=== PATIENT | female | born 1985 | race Two or more races ===

== ENCOUNTER 2017-12-16 22:41 | Emergency (ER) | payer SELFPAY ==
--- NOTE | 2017-12-17 01:52 | ER Document Report ---
ED General - General Chief Complaint: Leg Pain Stated Complaint: LEG PAIN Time Seen by Provider: 12/17/17 00:22 Notes: Patient is a 31-year-old female without chronic medical problems who presents with 24 hours of right leg pain. She describes the pain as a throbbing, aching , constant pain below the level of her knee mostly located in her calf. Pain has been worsening since onset. Nothing improves or worsens this pain. She denies a history of this intensive pain in the past although notes over the past several weeks has had occasional "shooting pain" to the affected area. She denies any swelling to the area, weakness, numbness. No history of DVT or pulmonary M was in the past. She does take an estrogen containing control pill. She has not seen her general doctor regarding today's concerns. TRAVEL OUTSIDE OF THE [place] IN LAST 30 DAYS: No - Related Data Allergies/Adverse Reactions: No Known Allergies Allergy (Unverified 05/05/13 09:11) Past Medical History - General Information source: Patient - Social History Smoking Status: Never Smoker Frequency of alcohol use: None Drug Abuse: None Lives with: Family Family History: Reviewed & Not Pertinent Past Surgical History: Reports: Hx Abdominal Surgery - Gastric Bypass 09/26/14, Hx Gastric Bypass Surgery - Immunizations Hx Diphtheria, Pertussis, Tetanus Vaccination: No Review of Systems - Review of Systems Notes: Constitutional: Negative for fever. HENT: Negative for sore throat. Eyes: Negative for visual changes. Cardiovascular: Negative for chest pain. Respiratory: Negative for shortness of breath. Gastrointestinal: Negative for abdominal pain, vomiting or diarrhea. Genitourinary: Negative for dysuria. Musculoskeletal: Positive right lower extremity pain Skin: Negative for rash. Neurological: Negative for headaches, weakness or numbness. 10 point ROS negative except as marked above and in HPI. Physical Exam - Vital signs Vitals: Temp Pulse Resp BP Pulse Ox 98.5 F 78 17 135/75 H 100 12/16/17 22:53 12/16/17 22:53 12/16/17 22:53 12/16/17 22:53 12/16/17 22:53 Interpretation: Normal Notes: PHYSICAL EXAMINATION: GENERAL: Well-appearing, well-nourished and in no acute distress. HEAD: Atraumatic, normocephalic. EYES: Pupils equal round and reactive to light, extraocular movements intact, sclera anicteric, conjunctiva are normal. ENT: nares patent, oropharynx clear without exudates. Moist mucous membranes. NECK: Normal range of motion, supple without lymphadenopathy LUNGS: Breath sounds clear to auscultation bilaterally and equal. No wheezes rales or rhonchi. HEART: Regular rate and rhythm without murmurs ABDOMEN: Soft, nontender, normoactive bowel sounds. No guarding, no rebound. No masses appreciated. EXTREMITIES: Normal range of motion, no pitting or edema. No cyanosis. Pain on palpation of the right gastrocs muscle. Bedside ultrasound with an easily compressible popliteal vein. NEUROLOGICAL: No focal neurological deficits. Moves all extremities spontaneously and on command. PSYCH: Normal mood, normal affect. SKIN: Warm, Dry, normal turgor, no rashes or lesions noted. Course - Re-evaluation Re-evalutation: 12/17/17 01:51 Patient presents with signs and symptoms most consistent with a probable gastroc strain or partial tear. Bedside ultrasound does not currently suggest an acute DVT although this is not a formal study. The patient does have a risk factor taking estrogen-containing control pill she will remain in the emergency department overnight and have a venous Doppler completed in the morning. If this is normal, I discussed with the patient that the most probable alternative would be a musculoskeletal strain and that we would subsequently discharge her home on NSAID therapy, stretching and rest to the area. She is agreeable. - Vital Signs Vital signs: Temp Pulse Resp BP Pulse Ox 98.5 F 78 17 135/75 H 100 12/16/17 22:53 12/16/17 22:53 12/16/17 22:53 12/16/17 22:53 12/16/17 22:53 - Laboratory Result Diagrams: 12/17/17 02:25 12/17/17 02:25 Discharge - Discharge Clinical Impression: Right calf pain Gastrocnemius muscle strain Qualifiers: Encounter type: initial encounter Laterality: right Qualified Code(s): S86.111A - Strain of other muscle(s) and tendon(s) of posterior muscle group at lower leg level, right leg, initial encounter Condition: Good Disposition: HOME, SELF-CARE Additional Instructions: Your ultrasound does not show an acute blood clot. You likely have a muscle strain. You should continue to take anti-inflammatories such as ibuprofen 600 mg every 6 hours. Continue to apply ice to the area is much your able. Please follow-up with your primary care physician if you do not have improving your symptoms in the next 1-2 weeks. Please return immediately if you develop weakness, numbness, spreading redness from the area, or any other symptoms that are concerning to you. Referrals: CIERA VILLASENOR PA-C [Primary Care Provider] - Follow up as needed
[2017-12-17 02:44] LABS: HEMATOCRIT 38.6 % (36.0-47.0); HEMOGLOBIN 12.9 g/dL (12.0-15.5); MEAN CORPUSCULAR HGB CONC 33.4 g/dL (32.0-36.0); MEAN CORPUSCULAR VOLUME 87 fl (80-97); PLATELET COUNT 271 10^3/uL (150-450); RED BLOOD COUNT 4.45 10^6/uL (3.72-5.28); RED CELL DISTRIBUTION WIDTH 12.6 % (11.5-14.0); WHITE BLOOD COUNT 7.2 10^3/uL (4.0-10.5)
[2017-12-17 02:50] LABS: ANION GAP 15 (5-19); BLOOD UREA NITROGEN 11 mg/dL (7-20); CALCIUM 9.3 mg/dL (8.4-10.2); CARBON DIOXIDE 28 mmol/L (22-30); CHLORIDE 104 mmol/L (98-107); GLUCOSE 77 mg/dL (75-110); POTASSIUM 4.1 mmol/L (3.6-5.0); SODIUM 147.4 mmol/L (137-145)
[2017-12-17] MEDS ORDERED: ACETAMINOPHEN 325 MG TABLET PO ONE (03:41)
[2017-12-17 08:26] VITALS: BP 118/67
--- NOTE | 2017-12-17 14:01 | XCELERA REPORT ---
[address] [address] Lower Extremity Venous Evaluation Name: MANJULA ORLANDO Age: 31 yrs Gender: Female : 1985 Patient Status: Emergency Patient Location: ER Study Date: 12/17/2017 08:42 AM Procedure: Color flow and duplex imaging of the veins of the right lower extremity as well as the left Common Femoral vein. Reason For Study: rle pain Ordering Physician: CRISTINA PASTOR Performed By: Zeke Ureña Right Sided Venous Evaluation Normal vessel filling wall to wall, compression and augmentation as well as Colour flow down to the infrageniculate veins. Left Sided Venous Evaluation The left common femoral vein is fully compressible. Spontaneous and phasic flow is present in the left common femoral vein. Interpretation Summary No duplex evidence of DVT or obstruction in the right lower extremity nor in the left Common Femoral vein. : CRISTINA PASTOR > Aayush Mejia
== END 2017-12-17 09:30 | disposition home or self-care (01) ==
LOC: ER 22:41
DX: S86.111A Strain of other muscle(s) and tendon(s) of posterior muscle group at lower leg level, right leg, initial encounter (principal); M79.661 Pain in right lower leg; X58.XXXA Exposure to other specified factors, initial encounter; Z79.3 Long term (current) use of hormonal contraceptives; Z98.84 Bariatric surgery status
CPT/HCPCS: 36415; 80048; 85027; 93971; 99284